=== PATIENT | male | born 1955 | race African-American/Black ===

== ENCOUNTER 2025-02-15 10:44 | Inpatient (IN) | payer MEDICARE, OTHER ==
[~2025-02-15] VITALS: Ht 172.7 cm; Wt 69.4 kg
[~2025-02-15 10:44] MED LIST: AMLO-258 PO; CALC215T; HYDR25TA84 PO; METO25 PO; ROSU20TA98 PO
[2025-02-15 11:29] LABS: PLATELET COUNT (AUTO) 186 K/uL (150-450); RED BLOOD CELL COUNT(AUTO) 5.06 MIL/uL (4.50-5.90); RED CELL DISTRIBUTION WIDTH 14.7 % (11.5-14.5); WHITE BLOOD COUNT (AUTO) 4.4 K/uL (4.5-11.0)
[2025-02-15 11:37] LABS: CALCIUM, TOTAL 8.1 mg/dL (8.8-10.5); CREATININE 1.22 mg/dL (0.60-1.30); GLOMERULAR FILTR. RATE CALC > 60 mL/min (>60); GLUCOSE,RANDOM 83 mg/dL (70-110); SODIUM SERUM 139 mmol/L (136-145); UREA NITROGEN, BLOOD 14 mg/dL (7-18)
[2025-02-15 11:44] LABS: ALCOHOL, BLOOD (SERUM) < 3 mg/dL (0-10)
[2025-02-15 11:46] LABS: TROPONIN I-HIGH SENSITIVITY 9 ng/L (<76)
[2025-02-15] MEDS ORDERED: HYDR50TA36 PO (17:08)
[2025-02-15 17:23] VITALS: BP 179/86; PULSE 95; RESP 19; TEMP 97.5; O2SAT 100
[2025-02-15] MEDS ORDERED: MAGNESIUM HYDROXIDE SUSPENSION 30 ML UDCUP PO PRN (18:15)
[2025-02-15] MEDS ORDERED: ZOLPIDEM TARTRATE 5 MG TABLET PO PRN (18:15)
[2025-02-15] MEDS ORDERED: HYDROCODONE/ACETAMINOPHEN 5-325 MG TABLET PO PRN (18:15)
[2025-02-15] MEDS ORDERED: ALBUTEROL SULFATE 2.5 MG/0.5 ML NEB SOLUTION NEB PRN (18:15)
[2025-02-15] MEDS ORDERED: IPRATROPIUM BROMIDE 0.5 MG/2.5 ML NEB SOLUTION NEB PRN (18:15)
[2025-02-15] MEDS ORDERED: MORPHINE SULFATE 4 MG/ML SYRINGE IVP PRN (18:15)
[2025-02-15] MEDS ORDERED: ONDANSETRON HCL 4 MG/2 ML VIAL IVP PRN (18:15)
[2025-02-15] MEDS ORDERED: BISACODYL 10 MG RECTAL RECTAL SUPPOSITORY PR PRN (18:15)
[2025-02-15 20:00] VITALS: BP 132/66; PULSE 89; RESP 18; TEMP 98.1; O2SAT 97
[2025-02-15] MEDS: METOPROLOL TARTRATE 25 MG TABLET PO SCH (21:32)
[2025-02-15 23:24] LABS: APPEARANCE,URINE CLEAR (CLEAR); GLUCOSE, URINE (UA) NEGATIVE (NEGATIVE); LEUKOCYTE ESTERASE ,URINE NEGATIVE (NEGATIVE); NITRATE,URINE NEGATIVE (NEGATIVE); OCCULT BLOOD,URINE NEGATIVE (NEGATIVE); PH,URINE DRUG SCREEN 7.0 (5.0-8.0); SPECIFIC GRAVITIY, URINE 1.011 (1.003-1.030)
[2025-02-15 23:30] LABS: ALCOHOL, URINE DRUG SCREEN NEGATIVE (NEGATIVE); AMPHET/METH SCREEN,URINE NEGATIVE (NEGATIVE); BARBITURATE SCREEN, URINE NEGATIVE (NEGATIVE); CANNABINOID SCREEN,URINE NEGATIVE (NEGATIVE); COCAINE SCREEN,URINE NEGATIVE (NEGATIVE); METHADONE SCREEN, URINE NEGATIVE (NEGATIVE)
[2025-02-16] VITALS (7 sets, daily range): BP systolic 131–155; BP diastolic 72–80; PULSE 75–92; RESP 15–18; TEMP 98.4–100.4; O2SAT 96–99
[2025-02-16] MEDS: HEPARIN SODIUM,PORCINE 5,000 UNITS/ML VIAL SQ SCH (00:34)
[2025-02-16] MEDS: ACETAMINOPHEN 325 MG TABLET PO PRN (00:37)
[2025-02-16 09:06] LABS: PLATELET COUNT (AUTO) 201 K/uL (150-450); RED BLOOD CELL COUNT(AUTO) 5.14 MIL/uL (4.50-5.90); RED CELL DISTRIBUTION WIDTH 15.1 % (11.5-14.5); WHITE BLOOD COUNT (AUTO) 6.1 K/uL (4.5-11.0)
[2025-02-16] MEDS: ROSUVASTATIN CALCIUM 20 MG TABLET PO SCH (09:12)
[2025-02-16] MEDS: PANTOPRAZOLE SODIUM 40 MG DR TABLET PO SCH (09:13)
[2025-02-16 09:15] LABS: CALCIUM, TOTAL 8.6 mg/dL (8.8-10.5); CREATININE 1.63 mg/dL (0.60-1.30); GLOMERULAR FILTR. RATE CALC 51.0 mL/min (>60); GLUCOSE,RANDOM 128.0 mg/dL (70-110); SODIUM SERUM 136.0 mmol/L (136-145); UREA NITROGEN, BLOOD 18.0 mg/dL (7-18)
[2025-02-17 04:05] VITALS: BP 146/80; PULSE 80; RESP 17; TEMP 98.8; O2SAT 96
[2025-02-17 08:30] VITALS: BP 141/92; PULSE 85; RESP 18; TEMP 97.7; O2SAT 99
[2025-02-17 10:57] VITALS: BP 142/85; PULSE 82; RESP 18; TEMP 98; O2SAT 99
[2025-02-17 15:30] VITALS: BP 145/82; PULSE 80; RESP 18; TEMP 98.2; O2SAT 100
[2025-02-17 16:00] LABS: CALCIUM, TOTAL 8.3 mg/dL (8.8-10.5); CREATININE 1.61 mg/dL (0.60-1.30); GLOMERULAR FILTR. RATE CALC 52.0 mL/min (>60); GLUCOSE,RANDOM 113.0 mg/dL (70-110); SODIUM SERUM 141.0 mmol/L (136-145); UREA NITROGEN, BLOOD 18.0 mg/dL (7-18)
[2025-02-17] MEDS ORDERED: NIFE-129 PO (16:25)
== END 2025-02-17 19:20 | disposition home or self-care (01) | DRG 305 ==
LOC: EMS 10:44 → EDH 13:53 → 5S 17:11
PROVIDERS: ADMIT Hospitalist; ATTEND Hospitalist
DX: I16.1 Hypertensive emergency (principal); D64.9 Anemia, unspecified; I11.9 Hypertensive heart disease without heart failure; E78.00 Pure hypercholesterolemia, unspecified; K59.00 Constipation, unspecified; N28.9 Disorder of kidney and ureter, unspecified; Z79.899 Other long term (current) drug therapy
CPT/HCPCS: 71045; 76770; 80048; 80307; 81003; 83880; 84153; 84484; 85025; 93005; 96372; 96374; 96375; 99285; G0378; G0480; J0360; J1644; 36415-L1; 36415-TC